=== PATIENT | female | born 1940 | race Caucasian/White ===

== ENCOUNTER 2017-05-05 12:17 | Emergency (ER) | payer MEDICARE, BC ==
[~2017-05-05] VITALS: Ht 157.5 cm; Wt 56.7 kg
[~2017-05-05 12:17] MED LIST: NKM
[2017-05-05 12:30] VITALS: BP 124/52
[2017-05-05] MEDS ORDERED: EMLA 5gm tube TOPIC ONE (13:00)
--- NOTE | 2017-05-05 13:03 | Emergency Room Report ---
History of Present Illness General Chief Complaint: Laceration Source: Patient Present Illness HPI 77-year-old female presents to the emergency department complaining of laceration to the right forearm times one hour. Patient states that she was attempting to make her fall as she was slipping down 3 stairs at home and patient scraped her arm on the wall. Patient denies bone pain or pain elsewhere on the body. Patient reports large bruise to the right forearm in addition to open wound that has bleeding at this time. Patient states she is up -to-date with vaccinations including tetanus which she had updated 2 years ago. Patient denies taking blood thinning medications. She did not hit her head she did not lose consciousness. Denies numbness tingling or loss of sensation or gross motor movements of the extremities, incontinence of bowel or bladder. Denies CP, Palpitations, LOC, AMS, dizziness, Changes in Vision, Sensation, paresthesias, or a sudden severe headache. Allergies: Coded Allergies: CODEINE (Verified Allergy, Severe, rash, 09/05/13) PENICILLINS (Verified Allergy, Severe, rash, 09/05/13) Patient History Past Medical History: see triage record Past Surgical History: none Pertinent Family History: none Now: No Immunizations: UTD Reviewed Nursing Documentation: PMH: Agreed, PSxH: Agreed Nursing Documentation-PMH Past Medical History: No History, Except For Review of Systems All Other Systems: negative except mentioned in HPI Physical Exam Vital Signs Date Time Temp Pulse Resp B/P (MAP) Pulse Ox O2 Delivery O2 Flow Rate FiO2 05/05/17 12:27 97.2 92 20 124/52 99 Room Air Sp02 EP Interpretation: reviewed, normal General Appearance: no apparent distress, alert, GCS 15, non-toxic Head: normocephalic, atraumatic Eyes: bilateral eye normal inspection, bilateral eye PERRL ENT: hearing grossly normal, normal voice Neck: full range of motion, supple/symm/no masses Respiratory: lungs clear, normal breath sounds, speaking full sentences Cardiovascular #1: regular rate, rhythm Musculoskeletal: back normal, gait/station normal, normal range of motion, non- tender Neurologic: alert, oriented x3, responsive, motor strength/tone normal, sensory intact, normal gait, speech normal Skin: normal color, no rash, warm/dry, well hydrated, hematoma - 4 inch diameter- rt. forearm, laceration - Skin tear the right forearm approximately 5 inches. 4 inch diameter ecchymosis to the right forearm, no bony ttp. Procedures Laceration/Wound Repair Laceration/Wound Repair : Consent: Verbal Wound Location: upper extremity - right forearm Wound's Depth, Shape: superficial Wound Length (cm): 5 Wound Explored: clean Irrigated w/ Saline (ccs): 700 Anesthesia: other - EMLA cream Volume Anesthetic (ccs): 1 Wound Repaired With: Steri-strips Sterile Dressing Applied?: Yes Splint Applied?: No Sling Applied?: Yes Patient Tolerated: Well Complications: None Medical Decision Making PA Attestation Dr. pathak is my supervising Physician whom patient management has been discussed with. Diagnostic Impression: Primary Impression: Skin tear of forearm without complication Qualified Codes: S51.811A - Laceration without foreign body of right forearm, initial encounter ER Course 77-year-old female presents to the emergency department complaining of laceration to the right forearm times one hour. Patient states that she was attempting to make her fall as she was slipping down 3 stairs at home and patient scraped her arm on the wall. Patient denies bone pain or pain elsewhere on the body. Patient reports large bruise to the right forearm in addition to open wound that has bleeding at this time. Patient states she is up -to-date with vaccinations including tetanus which she had updated 2 years ago. Patient denies taking blood thinning medications. She did not hit her head she did not lose consciousness. Denies numbness tingling or loss of sensation or gross motor movements of the extremities, incontinence of bowel or bladder. Denies CP, Palpitations, LOC, AMS, dizziness, Changes in Vision, Sensation, paresthesias, or a sudden severe headache. Ddx considered but are not limited to laceration, tendon injury, cellulitis, amputation Vital signs: are WNL, pt. is afebrile H&PE are most consistent with: Skin tear the right forearm approximately 5 inches. 4 inch diameter ecchymosis to the right forearm, no bony ttp. ORDERS: none required at this time, the diagnosis is clinical ED INTERVENTIONS: - The wound was copiously irrigated with normal saline, and explored for foreign body for which no FB was found. - pt. is anesthetized with EMLA CREAM - The wound was approximated and closed using steri-strips -Bacitracin and sterile dressing is applied. - - Right arm Sling applied by field crop technical officer. Pt. remains neurovascularly intact. Discussed with patient: That we make every effort to approximate the laceration as best as we can so that scarring will be as cosmetically pleasing as possible with our limited cosmetic skill set in the Emergency dept. Regardless of our best efforts there will be scarring after laceration repair. The extent of scarring is unknown at this time. DISCHARGE: At this time pt. is stable for d/c to home. Will provide printed patient care instructions, and any necessary prescriptions. Care plan and follow up instructions have been discussed with the patient prior to discharge. Last Vital Signs Date Time Temp Pulse Resp B/P (MAP) Pulse Ox O2 Delivery O2 Flow Rate FiO2 05/05/17 12:30 97.2 20 124/52 99 Room Air 05/05/17 12:27 92 Disposition: HOME, SELF-CARE Condition: Stable Scripts Bacitracin/Polymyxin B Sulfate (BACITRACIN-POLYMYXIN OINTMENT) 28.35 Gm Oint...g. 1 APPLIC TP BID, #28.3 GM Prov: Chika Rincon 05/05/17 Patient Instructions: Skin Tear Care Additional Instructions: Take medications as directed. Follow up with a Primary Care Provider in 3-5 days, even if your symptoms have resolved. --Please review list of primary care clinics, if you do not already have a primary care provider Return sooner to ED if new symptoms occur, or current symptoms become worse. - Please note that this Emergency Department Report was dictated using [employer]solid waste manager technology software, occasionally this can lead to erroneous entry secondary to interpretation by the dictation equipment. Chika Rincon May 05, 2017 13:03
[2017-05-05] MEDS ORDERED: Tetanus/Diptheria/Pertussis Vaccine 0.5ml Syr IM ONE (13:15)
[2017-05-05] MEDS ORDERED: Bacitracin Oint UD TOPIC ONE ×2 (13:41→13:45)
[2017-05-05] MEDS ORDERED: BACITRACIN-P28.35 GM TP (13:42)
[2017-05-05 14:04] VITALS: BP 144/85
== END 2017-05-05 14:04 | disposition home or self-care (01) ==
LOC: EMR 13:00
DX: S51.811A Laceration without foreign body of right forearm, initial encounter (principal); W10.9XXA Fall (on) (from) unspecified stairs and steps, initial encounter; Y93.9 Activity, unspecified; Y99.9 Unspecified external cause status; Z88.5 Allergy status to narcotic agent; Z88.0 Allergy status to penicillin
CPT/HCPCS: 99284

== ENCOUNTER 2017-05-17 09:30 | Outpatient (RCR) | payer MEDICARE, BC ==
[~2017-05-17 09:30] MED LIST changes: +BACITRACIN-P28.35 GM TP
== END 2017-06-10 | disposition home or self-care (01) ==
LOC: WCC 09:30
DX: L98.492 Non-pressure chronic ulcer of skin of other sites with fat layer exposed (principal); M06.041 Rheumatoid arthritis without rheumatoid factor, right hand; Z88.6 Allergy status to analgesic agent; Z88.0 Allergy status to penicillin
CPT/HCPCS: 11042; G0463